=== PATIENT | female | born 1975 | race Caucasian/White ===

== ENCOUNTER 2016-04-07 23:05 | Emergency (ER) | payer OTHER ==
[~2016-04-07 23:05] MED LIST: /QUET10TA OR; AMOX500C OR; ATARAX OR; CELE100C; CELE100C OR; CELEBREX; DULO20CA; DULO20CA OR; IBUP400T; IBUP600T OR; KLON0.5T; LYRI75CA; LYRI75CA OR; METO10TA2 OR; REME30TA; SOMA; SOMA350T; SOMA350T OR; TRAZ100T OR; VICO5TAB OR; lyrica
[2016-04-07] MEDS ORDERED: HALOPERIDOL 5 MG/ML VIAL (J1630) As Ordered ONE (23:31)
[2016-04-07] MEDS ORDERED: LORazepam 2 MG/ML VIAL (J2060) As Ordered ONE (23:31)
[2016-04-07] MEDS ORDERED: diphenhydrAMINE INJ 50MG/ML VIAL (J1200) As Ordered ONE (23:31)
[2016-04-08 00:50] LABS: INR 0.9
[2016-04-08 00:58] LABS: CONTROL LINE HCG INT CTR LINE PRESENT
[2016-04-08 01:05] LABS: AMPHETAMINES LEVEL URINE NEGATIVE (NEGATIVE); BENZODIAZEPINES URINE NEGATIVE (NEGATIVE); COCAINE METABOLITE URINE NEGATIVE (NEGATIVE); CONTROL LINE INT CTR LINE PRESENT; METHADONE URINE NEGATIVE (NEGATIVE); OPIATES URINE NEGATIVE (NEGATIVE); TRICYCLIC ANTIDEPRESS URINE NEGATIVE (NEGATIVE)
[2016-04-08 01:10] LABS: ALKALINE PHOSPHATASE 76 U/L (45-117); ALT/SGPT 22 U/L (12-78); ANION GAP 7 MEQ/L (8-16); AST/SGOT 14 U/L (15-37); BILIRUBIN,TOTAL 0.2 MG/DL (0.2-1.0); BLOOD UREA NITROGEN 9 MG/DL (7-18); CALCIUM LEVEL 8.9 MG/DL (8.5-10.1); CARBON DIOXIDE LEVEL 28 MEQ/L (21-32); CHLORIDE LEVEL 109 MEQ/L (98-107); CREATININE FOR GFR 0.76 MG/DL (0.55-1.02); GLOMERULAR FILTRATION RATE > 60.0 (>58); GLUCOSE, FASTING 92 MG/DL (70-105); POTASSIUM SERUM 3.8 MEQ/L (3.5-5.1); SODIUM LEVEL 144 MEQ/L (136-145)
[2016-04-08 01:11] LABS: ALBUMIN 4.3 GM/DL (3.2-5.2); ALBUMIN/GLOBULIN RATIO 1.19 (1.00-1.93); BILIRUBIN,DIRECT < 0.1 MG/DL (0.0-0.2); TOTAL PROTEIN 7.9 GM/DL (6.4-8.2)
[2016-04-08 01:30] LABS: BASO # 0.1 K/mm3 (0.0-0.2); BASO % 1.1 % (0.0-1.0); EOS # 0.3 K/mm3 (0.0-0.50); EOS % 3.2 % (0.0-3.0); LARGE UNSTAINED CELL # 0.1 K/mm3 (0.0-0.4); LYMPH # 2.6 K/mm3 (1.5-4.5); MEAN CORPUSCULAR HEMOGLOBIN 29.7 pg (27.0-33.0); MEAN CORPUSCULAR HGB CONC 32.2 g/dl (32.0-36.5); MONO # 0.4 K/mm3 (0.0-0.8); MONO % 4.3 % (0.0-5.0); NEUTROPHILS # 5.9 K/mm3 (1.8-7.7); NEUTROPHILS % 63.3 % (36.0-66.0); PLATELET COUNT, AUTOMATED 442 k/mm3 (150-450); RED CELL DISTRIBUTION WIDTH 12.7 % (11.5-14.5); WHITE BLOOD COUNT 9.2 K/mm3 (4.0-10.0)
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
--- NOTE | 2016-04-08 02:40 | REPUSA ---
CLINICAL HISTORY: Neck pain. TECHNIQUE: Multiple axial images were obtained through the cervical spine. Images were also reconstru cted in coronal and sagittal planes. The study was performed without IV contrast. COMMENTS: There is no fracture or spondylolisthesis visualized. The paraspinal soft tissues are unremarkable. T here are no lytic or blastic lesions. Straightening of cervical lordosis is seen, suggesting muscular spasm. There is evidence of moderate multilevel disk disease, demonstrated by osteophytosis and endplate sclerosis. Moderate multilevel spinal canal and neural foramina narrowing. IMPRESSION: 1. No fracture or spondylolisthesis. 2. Straightening of cervical lordosis is seen, suggesting muscular spasm. 3. Multilevel spondylosis. Thank you for your kind referral of this patient.
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
--- NOTE | 2016-04-08 03:20 | REPUSA ---
CLINICAL HISTORY: Abdominal pain. TECHNIQUE: Multiple axial, sagittal and coronal CT images were obtained through the abdomen and pelvi s without administration of oral or IV contrast material. COMMENTS: The liver is of uniform attenuation without mass or defect. There is no intra or extrahepatic biliary ductal dilatation. The spleen is normal. The gallbladder is within normal limits. The pancreas is of normal contour and attenuation characteristics. There is no evidence of adrenal mass. Moderate fracture or hydronephrosis. There is no evidence for appendicitis. There is no bowel wall thickening. No evidence for small or la rge bowel obstruction. There is no evidence of abdominal ascites or lymphadenopathy. There is no evidence of intrinsic or extrinsic bladder mass. There is no pelvic ascites or lymphadeno dana. Distended urinary bladder. Small amount of free fluid in the pelvis. There is perisigmoid fat strandi ng. Images of the lung bases show no evidence of pleural or parenchymal mass. There are no pleural effusi ons. The bony structures are free of lytic or blastic lesions. Multilevel degenerative changes are seen in volving the thoracolumbar spine. Scattered calcifications are seen involving the aorta and major branches compatible with atherosclero sis. IMPRESSION: Small amount of free fluid in the pelvis the perisigmoid fat stranding. Sigmoid diverticulosis. Distended urinary bladder. Moderate left hydroureteronephrosis. Thank you for your kind referral of this patient.
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
--- NOTE | 2016-04-08 16:05 | REP ---
CT ABDOMEN AND PELVIS WITHOUT CONTRAST: 04/08/2016 at 03:05 PM. Comparison: CT 04/08/2016 at 1:24 AM., CT 02/18/2016, 09/26/2015 CT without with contrast. Clinical history: Left hydronephrosis, chronic. CT abdomen: Technique: Our standard noncontrast protocol with coronal and sagittal reconstructions performed. The lung bases show minor dependent atelectatic change without infiltrate, effusion or other acute finding. Heart is not enlarged. There is no pericardial thickening or effusion. I see no hiatal hernia. There is no hepatosplenomegaly, focal hepatic or splenic mass lesion nor intrahepatic biliary dilatation. No adjacent ascites. Gallbladder contracted without calcified stone or mass. Pancreas grossly intact. Adrenal glands normal. No nodular mass. Small bowel loops grossly intact. Colon shows diverticulosis of the left colon without colitis or diverticulitis in the abdomen proper. Small bowel loops grossly intact. The aorta is without calcification or aneurysm. No periaortic or retroperitoneal pathologic sized lymphadenopathy. Lung window review of all CT slices shows no perforation or free air. The bone windows show lumbar and lower thoracic spine, posterior elements and ribs unchanged and without acute finding. CT pelvis: Bony hips, pelvis, sacrum, SI joints, lumbosacral junction all grossly intact and without acute finding. The bladder is without stone, mass, wall thickening or other acute finding. The right kidney shows no hydronephrosis, stone or mass. The left kidney shows some mild atrophy of the cortex and moderate hydronephrosis with extrarenal pelvis and hydroureter down to the pelvis. There are inflammatory changes in the left lower quadrant posterior to the sigmoid where there is fairly extensive changes, sigmoid muscular hypertrophy and diverticulitis. There is no definite perforation or abscess there, but the ureter is dilated above this point and there has been chronic inflammatory change in this region, which is likely the cause of the ureteral dilatation. I do not see a renal or ureteral stone on that left side. The distal ureters show no dilatation or stone. There is no bladder stone. Uterus anteverted, slightly tilted to the right, not enlarged. There is no ventral or inguinal hernia nor pathologic inguinal adenopathy. No inflammatory changes about the cecum. Impression: Moderately severe to severe left hydronephrosis with extrarenal pelvis and hydroureter down to the left pelvis where there are fairly extensive inflammatory changes from sigmoid diverticulitis, this would appear to be the cause of the hydronephrosis. There is no renal or ureteral stone on the left and no stone on the right. The extensive diverticulosis and muscular hypertrophy similar to that seen on previous studies. No perforation, abscess or free air. There are no changes in the appearance of the exam from the study 14 hours ago. Signed by Derrek Mo MD 04/08/2016 05:53 P
[2016-04-08 17:00] LABS: BASO % 0.4 % (0.0-1.0); EOS # 0.3 K/mm3 (0.0-0.50); EOS % 4.2 % (0.0-3.0); LARGE UNSTAINED CELL # 0.1 K/mm3 (0.0-0.4); LARGE UNSTAINED CELL % 1.3 % (0.0-4.0); LYMPH # 1.8 K/mm3 (1.5-4.5); LYMPH % 22.4 % (24.0-44.0); MEAN CORPUSCULAR HEMOGLOBIN 31.1 pg (27.0-33.0); MEAN CORPUSCULAR HGB CONC 34.9 g/dl (32.0-36.5); MEAN CORPUSCULAR VOLUME 88.9 fl (80.0-96.0); MONO # 0.4 K/mm3 (0.0-0.8); MONO % 4.5 % (0.0-5.0); NEUTROPHILS # 5.5 K/mm3 (1.8-7.7); NEUTROPHILS % 67.2 % (36.0-66.0); PLATELET COUNT, AUTOMATED 427 k/mm3 (150-450); RED CELL DISTRIBUTION WIDTH 11.9 % (11.5-14.5); WHITE BLOOD COUNT 8.2 K/mm3 (4.0-10.0)
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
== END 2016-04-08 18:14 | disposition home or self-care (01) ==
LOC: M ED 23:05
DX: S20.211A Contusion of right front wall of thorax, initial encounter (principal); S62.663A Nondisplaced fracture of distal phalanx of left middle finger, initial encounter for closed fracture; F10.229 Alcohol dependence with intoxication, unspecified; Y04.8XXA Assault by other bodily force, initial encounter; Y92.099 Unspecified place in other non-institutional residence as the place of occurrence of the external cause; Y93.89 Activity, other specified; Y99.8 Other external cause status; F90.9 Attention-deficit hyperactivity disorder, unspecified type; M54.9 Dorsalgia, unspecified; F17.200 Nicotine dependence, unspecified, uncomplicated; Z79.899 Other long term (current) drug therapy
CPT/HCPCS: 36415; 70450; 71250; 72125; 73140; 74176; 80048; 80076; 80306; 84703; 85025; 85610; 85730; 86850; 86900; 86901; 96372; 99285; G0480; J1200; J1630; J2060

== ENCOUNTER → 2016-07-01 | Outpatient (CLI) | payer OTHER ==
[~2016-07-01] VITALS: Ht 165.1 cm; Wt 65.8 kg
[~2016-07-01] MED LIST changes: +ADDE10CA PO; +LIDOCAINE 2% INJ 100 MG/5 ML SDV (FOR ANES.) As Ordered ONE; +NS 1,000 ML IV SCH; +PROPOFOL 200 MG/20 ML VIAL As Ordered ONE; +XANA0.5T PO
--- NOTE | 2016-07-01 08:34 | ROOR ---
Patient Name: Pam Chamorro Procedure Date: 07/01/2016 7:57 AM Date of : 1975 Age: 41 Room: [facility] Gender: Female Note Status: Finalized Procedure: Colonoscopy Indications: Abdominal pain in the left lower quadrant, Abnormal CT of the GI tract, Suspected diverticulitis Providers: Iván Davison MD Referring MD: RANULFO GILMORE MD Requesting Provider: Medicines: Monitored Anesthesia Care Complications: No immediate complications. Procedure: Pre-Anesthesia Assessment: - Prior to the procedure, a History and Physical was performed, and patient medications and allergies were reviewed. The patient is competent. The risks and benefits of the procedure and the sedation options and risks were discussed with the patient. All questions were answered and informed consent was obtained. Patient identification and proposed procedure were verified by the physician, the nurse and the manager market in the endoscopy suite. Mental Status Examination: alert and oriented. Airway Examination: normal oropharyngeal airway and neck mobility. Respiratory Examination: clear to auscultation. CV Examination: normal. Prophylactic Antibiotics: The patient does not require prophylactic antibiotics. Prior Anticoagulants: The patient has taken no previous anticoagulant or antiplatelet agents. ASA Grade Assessment: II - A patient with mild systemic disease. After reviewing the risks and benefits, the patient was deemed in satisfactory condition to undergo the procedure. The anesthesia plan was to use monitored anesthesia care (MAC). Immediately prior to administration of medications, the patient was re-assessed for adequacy to receive sedatives. The heart rate, respiratory rate, oxygen saturations, blood pressure, adequacy of pulmonary ventilation, and response to care were monitored throughout the procedure. The physical status of the patient was re-assessed after the procedure. The Colonoscope was introduced through the anus and advanced to the cecum, identified by appendiceal orifice and ileocecal valve. The colonoscopy was somewhat difficult due to multiple diverticula in the colon and restricted mobility of the colon. The patient tolerated the procedure well. The quality of the bowel preparation was good. Findings: The perianal and digital rectal examinations were normal. A small polyp was found in the rectum. The polyp was pedunculated. The polyp was removed with a hot snare. Resection and retrieval were complete. Estimated blood loss: none. Multiple medium-mouthed diverticula were found in the sigmoid colon. There was narrowing of the colon in association with the diverticular opening. Emily-diverticular erythema was seen. At the area of sigmoid colon from 20 to 40 cms, noted muscular hypertrophy with redundant colon, difficulty in intubating but was able to go through, some scattered peridiverticular erythema, no purulent drainage, multiple diverticula No additional abnormalities were found on retroflexion. Impression: - One small polyp in the rectum, removed with a hot snare. Resected and retrieved. - Moderate diverticulosis in the sigmoid colon. There was narrowing of the colon in association with the diverticular opening. Emily-diverticular erythema was seen. Recommendation: - Discharge patient to home (ambulatory). - High fiber diet indefinitely. - Return to my office in 2 weeks. Iván Davison MD Iván Davison MD 07/01/2016 8:34:03 AM This report has been signed electronically. Number of Addenda: 0 Note Initiated On: 07/01/2016 7:57 AM Estimated Blood Loss: Estimated blood loss: none.
[2016-07-01 09:25] VITALS: BP 128/71
== END | disposition home or self-care (01) ==
LOC: M OPP 07:17
PROVIDERS: ATTEND Surgery
DX: R93.3 Abnormal findings on diagnostic imaging of other parts of digestive tract (principal); K57.92 Diverticulitis of intestine, part unspecified, without perforation or abscess without bleeding; R10.32 Left lower quadrant pain; D12.8 Benign neoplasm of rectum; Q43.8 Other specified congenital malformations of intestine; M19.90 Unspecified osteoarthritis, unspecified site; M54.9 Dorsalgia, unspecified; M48.00 Spinal stenosis, site unspecified; F90.9 Attention-deficit hyperactivity disorder, unspecified type; R06.02 Shortness of breath; N13.30 Unspecified hydronephrosis; N18.9 Chronic kidney disease, unspecified; F17.210 Nicotine dependence, cigarettes, uncomplicated; Z79.899 Other long term (current) drug therapy

== ENCOUNTER 2017-09-11 02:49 | Emergency (ER) | payer OTHER | END 2017-09-11 03:48 | disposition left against medical advice (07) | LOC: M ED 02:49 | DX: S00.91XA Abrasion of unspecified part of head, initial encounter (principal); Y04.8XXA Assault by other bodily force, initial encounter; Y92.89 Other specified places as the place of occurrence of the external cause; Z53.21 Procedure and treatment not carried out due to patient leaving prior to being seen by health care provider | CPT/HCPCS: 99283 ==

== ENCOUNTER 2018-11-08 16:20 | Emergency (ER) | payer OTHER ==
[~2018-11-08] VITALS: Ht 165.1 cm; Wt 64.8 kg
[~2018-11-08 16:20] MED LIST changes: -/QUET10TA OR; -ADDE10CA PO; +ADDE10CA3 PO; +AMPHET/DEXTR; +CYMB1CAP4; +CYMB1CAP4 OR; -DULO20CA; -DULO20CA OR; -LIDOCAINE 2% INJ 100 MG/5 ML SDV (FOR ANES.) As Ordered ONE; -NS 1,000 ML IV SCH; -PROPOFOL 200 MG/20 ML VIAL As Ordered ONE; +SERO1TAB OR
[2018-11-08 16:21] VITALS: BP 136/65
[2018-11-08] MEDS ORDERED: CARI1TAB7 (16:27)
[2018-11-08] MEDS ORDERED: ADDE20CA3 (16:27)
[2018-11-08] MEDS ORDERED: KETOROLAC 60 MG/2 ML VIAL (J1885) IM ONE (17:15)
[2018-11-08] MEDS ORDERED: CIPRODEX AS (17:21)
[2018-11-08] MEDS ORDERED: KETO10TAB PO (17:21)
[2018-11-08] MEDS ORDERED: CIPR-249 PO (17:21)
== END 2018-11-08 17:56 | disposition home or self-care (01) ==
LOC: M ED 16:20
DX: H60.312 Diffuse otitis externa, left ear (principal); H60.12 Cellulitis of left external ear; Z79.899 Other long term (current) drug therapy
CPT/HCPCS: 96372; 99283; J1885

== ENCOUNTER 2018-12-31 01:34 | Emergency (ER) | payer OTHER ==
[~2018-12-31] VITALS: Ht 157.5 cm; Wt 65.9 kg
[~2018-12-31 01:34] MED LIST changes: +ADDE20CA3; +CARI1TAB7; +CIPR-249 PO; +CIPRODEX AS; +KETO10TAB PO
[2018-12-31 01:40] VITALS: BP 140/86
== END 2018-12-31 01:55 | disposition left against medical advice (07) ==
LOC: M ED 01:34
DX: F10.129 Alcohol abuse with intoxication, unspecified (principal); Z53.21 Procedure and treatment not carried out due to patient leaving prior to being seen by health care provider; Z79.899 Other long term (current) drug therapy

== ENCOUNTER 2018-12-31 01:59 | Emergency (ER) | payer OTHER ==
[~2018-12-31] VITALS: Ht 162.6 cm; Wt 68.2 kg
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
[2018-12-31 03:26] LABS: BASO # 0.1 10^3/uL (0.0-0.2); BASO % 0.8 % (0.0-1.0); EOS # 0.2 10^3/uL (0.0-0.5); EOS % 2.1 % (0.0-3.0); HEMATOCRIT 41.7 % (36.0-47.0); HEMOGLOBIN 14.3 g/dl (12.0-15.5); LYMPH # 2.2 10^3/uL (1.5-5.0); LYMPH % 19.6 % (24.0-44.0); MEAN CORPUSCULAR HEMOGLOBIN 30.8 pg (27.0-33.0); MEAN CORPUSCULAR HGB CONC 34.3 g/dl (32.0-36.5); MEAN CORPUSCULAR VOLUME 89.7 fl (80.0-96.0); MONO # 0.7 10^3/uL (0.0-0.8); MONO % 6.5 % (0.0-5.0); NEUTROPHILS # 7.7 10^3/uL (1.5-8.5); NEUTROPHILS % 70.5 % (36.0-66.0); PLATELET COUNT, AUTOMATED 363 10^3/uL (150-450); RED BLOOD COUNT 4.65 10^6/uL (4.00-5.40)
[2018-12-31] MEDS ORDERED: AMPICILLIN SOD/SULBACTAM SOD 3 GM in D5W MINI-BAG PLUS 100 ML IV ONE (03:30)
[2018-12-31 03:51] LABS: BLOOD UREA NITROGEN 9 MG/DL (7-18); CALCIUM LEVEL 8.9 MG/DL (8.5-10.1); CARBON DIOXIDE LEVEL 26 MEQ/L (21-32); CHLORIDE LEVEL 101 MEQ/L (98-107); CREATININE FOR GFR 0.77 MG/DL (0.55-1.30); ETHYL ALCOHOL (ETHANOL) 0.133 % (0.000-0.010); GLOMERULAR FILTRATION RATE > 60.0 (>58); GLUCOSE, FASTING 68 MG/DL (70-100); POTASSIUM SERUM 3.5 MEQ/L (3.5-5.1); SODIUM LEVEL 137 MEQ/L (136-145)
[2018-12-31] MEDS ORDERED: NICOTINE 21MG/24HR 1 EA TRANSDERMAL TD ONE (04:00)
[2018-12-31] MEDS ORDERED: MORPHINE 4 MG/ML 1ML VIAL/SYRINGE (J2270) IV ONE (04:00)
[2018-12-31 04:23] VITALS: BP 141/100
== END 2018-12-31 04:29 | disposition short-term general hospital (02) ==
LOC: M ED 01:59
DX: S02.32XA Fracture of orbital floor, left side, initial encounter for closed fracture (principal); S02.2XXA Fracture of nasal bones, initial encounter for closed fracture; F10.129 Alcohol abuse with intoxication, unspecified; Y04.8XXA Assault by other bodily force, initial encounter; Y92.9 Unspecified place or not applicable; Y93.9 Activity, unspecified; Y99.9 Unspecified external cause status; Z79.899 Other long term (current) drug therapy
CPT/HCPCS: 70450; 70486; 80048; 85025; 96365; 96375; 99284; G0480; J2270

== ENCOUNTER 2020-08-13 02:16 | Emergency (ER) | payer OTHER ==
[~2020-08-13 02:16] MED LIST changes: +CIPR7.5D5 AS; -CIPRODEX AS
[2020-08-13 02:54] LABS: BASO # 0.1 10^3/uL (0.0-0.2); BASO % 0.5 % (0.0-1.0); EOS # 0.1 10^3/uL (0.0-0.5); EOS % 0.8 % (0.0-3.0); HEMATOCRIT 41.7 % (36.0-47.0); HEMOGLOBIN 13.9 g/dl (12.0-15.5); LYMPH # 1.4 10^3/uL (1.5-5.0); LYMPH % 9.4 % (24.0-44.0); MEAN CORPUSCULAR HEMOGLOBIN 30.5 pg (27.0-33.0); MEAN CORPUSCULAR HGB CONC 33.3 g/dl (32.0-36.5); MEAN CORPUSCULAR VOLUME 91.6 fl (80.0-96.0); MONO # 1.2 10^3/uL (0.0-0.8); MONO % 7.8 % (2.0-8.0); NEUTROPHILS # 12.2 10^3/uL (1.5-8.5); PLATELET COUNT, AUTOMATED 443 10^3/uL (150-450); RED BLOOD COUNT 4.55 10^6/uL (4.00-5.40); WHITE BLOOD COUNT 15.1 10^3/uL (4.0-10.0)
[2020-08-13 03:05] LABS: ACETAMINOPHEN LEVEL < 2.0 UG/ML (10.0-30.0); BLOOD UREA NITROGEN 7 MG/DL (7-18); CALCIUM LEVEL 8.6 MG/DL (8.5-10.1); CARBON DIOXIDE LEVEL 25 MEQ/L (21-32); CHLORIDE LEVEL 105 MEQ/L (98-107); CREATININE FOR GFR 0.69 MG/DL (0.55-1.30); ETHYL ALCOHOL (ETHANOL) 0.084 % (0.000-0.010); GLOMERULAR FILTRATION RATE > 60.0 (>58); GLUCOSE, FASTING 96 MG/DL (70-100); POTASSIUM SERUM 3.8 MEQ/L (3.5-5.1); SALICYLATE LEVEL 3.5 MG/DL (5.0-30.0); SODIUM LEVEL 140 MEQ/L (136-145)
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
--- NOTE | 2020-08-13 03:35 | REPVR ---
PROCEDURE INFORMATION: Exam: CT Cervical Spine Without Contrast Exam date and time: 08/13/2020 2:20 AM Age: 45 years old Clinical indication: Neck pain; Additional info: Fall injury TECHNIQUE: Imaging protocol: Computed tomography images of the cervical spine without contrast. Radiation optimization: All CT scans at this facility use at least one of these dose optimization techniques: automated exposure control; mA and/or kV adjustment per patient size (includes targeted exams where dose is matched to clinical indication); or iterative reconstruction. COMPARISON: CT Spine,cervical w/o contrast 04/08/2016 1:19 AM FINDINGS: There is straightening and mild reversal of cervical lordosis. Cervical vertebral body heights, posterior cervical alignment, and prevertebral soft tissues are within normal limits. Bony fusion is noted across the T1/T2 level. The atlantodental interval is maintained. The facet joints are not subluxed or dislocated. Inter spinous spacing is within normal limits. No acute fracture of the cervical spine is seen. Degenerative changes of the cervical spine are noted with mild to moderate disc space loss, anterior osteophytes, posterior bony ridging and facet arthropathy. Bony proliferative changes may result in varying degrees of central canal and foraminal compromise at multiple levels, appearing more pronounced towards the lower cervical levels. Appearance is similar to the prior exam. If there are neurologic symptoms, consider further evaluation by MRI. Mild parenchymal scarring is seen at the visualized lung apices. IMPRESSION: No acute fracture of the cervical spine. Other findings discussed above. Electronically signed by: Joe Barrett On 08/13/2020 03:35:28 AM
[2020-08-13] MEDS ORDERED: KETOROLAC 30 MG/ML 1ML VIAL IV ONE (03:50)
[2020-08-13] MEDS ORDERED: LIDOCAINE 5% (LIDODERM) PATCH TD ONE (03:50)
[2020-08-13] MEDS ORDERED: LIDO5DIS41 TOP (03:51)
[2020-08-13] MEDS ORDERED: IBUP-1022 PO (03:51)
--- NOTE | 2020-08-13 04:16 | REPVR ---
PROCEDURE INFORMATION: Exam: XR Right Ankle Exam date and time: 08/13/2020 3:26 AM Age: 45 years old Clinical indication: Pain; Ankle; Bilateral; Additional info: Fall injury TECHNIQUE: Imaging protocol: XR Right ankle. Views: 3 or more views. COMPARISON: CR Ankle, complete 09/10/2014 1:17 PM FINDINGS: Bones/joints: Area of sclerosis distal fibula diaphysis probably reflecting residua benign metaphyseal defect. Soft tissues: Soft tissue edema laterally. No acute fracture. IMPRESSION: No acute osseous abnormality. PROCEDURE INFORMATION: Exam: XR Left Ankle Exam date and time: 08/13/2020 3:26 AM Age: 45 years old Clinical indication: Pain; Ankle; Bilateral; Additional info: Fall injury TECHNIQUE: Imaging protocol: XR Left ankle. Views: 3 or more views. COMPARISON: CR Ankle, complete 09/10/2014 1:17 PM FINDINGS: Bones/joints: Small calcaneal spur. No acute fracture. Soft tissues: Soft tissue edema laterally. IMPRESSION: No acute osseous abnormality. Electronically signed by: Juliet Hogan On 08/13/2020 04:15:19 AM
[2020-08-13 05:26] VITALS: BP 144/72
[2020-08-13] MEDS ORDERED: **NOTE PATIENT COMMENT** MISC XX SCH (21:00)
== END 2020-08-13 05:42 | disposition home or self-care (01) ==
LOC: M ED 02:16
DX: S93.409A Sprain of unspecified ligament of unspecified ankle, initial encounter (principal); W01.0XXA Fall on same level from slipping, tripping and stumbling without subsequent striking against object, initial encounter; Y92.9 Unspecified place or not applicable; Y93.9 Activity, unspecified; Y99.9 Unspecified external cause status; F32.9 Major depressive disorder, single episode, unspecified; M54.9 Dorsalgia, unspecified; Z79.899 Other long term (current) drug therapy
CPT/HCPCS: 70450; 72125; 73610; 80048; 80143; 82077; 85025; 96374; 99284; J1885

== ENCOUNTER → 2022-01-15 | Outpatient (CLI) | payer OTHER ==
[~2022-01-15] MED LIST changes: +E-Z-GAS II EFFERVESCENT PACKET (SODIUM BICARB./CITRIC ACID/SIMETHICONE) As Ordered ONE; +E-Z-HD 98% w/w 340GM SUSP BTL As Ordered ONE; +E-Z-PAQUE 96% w/w SUSP 176GM BTL As Ordered ONE; +IBUP-1022 PO; +LIDO5DIS41 TOP
== END ==
LOC: M RAD 09:59
PROVIDERS: ATTEND Family Medicine
DX: K21.9 Gastro-esophageal reflux disease without esophagitis (principal)

== ENCOUNTER 2022-06-30 22:38 | Emergency (ER) | payer MEDICAID, OTHER, SELFPAY ==
[~2022-06-30 22:38] MED LIST changes: -ADDE20CA3; +ADDE20CA3 PO; -CARI1TAB7; +CARI1TAB7 PO; -E-Z-GAS II EFFERVESCENT PACKET (SODIUM BICARB./CITRIC ACID/SIMETHICONE) As Ordered ONE; -E-Z-HD 98% w/w 340GM SUSP BTL As Ordered ONE; -E-Z-PAQUE 96% w/w SUSP 176GM BTL As Ordered ONE
[2022-06-30] MEDS ORDERED: OLANZapine INTRAMUSCULAR 10MG VIAL IM ONE (23:00)
[2022-06-30 23:39] LABS: HEMATOCRIT 39.3 % (36.0-47.0); HEMOGLOBIN 13.1 g/dl (12.0-15.5); MEAN CORPUSCULAR HEMOGLOBIN 28.6 pg (27.0-33.0); MEAN CORPUSCULAR HGB CONC 33.3 g/dl (32.0-36.5); MEAN CORPUSCULAR VOLUME 85.8 fl (80.0-96.0); PLATELET COUNT, AUTOMATED 353 10^3/uL (150-450); RED BLOOD COUNT 4.58 10^6/uL (4.00-5.40); WHITE BLOOD COUNT 8.6 10^3/uL (4.0-10.0)
[2022-06-30] MEDS ORDERED: HYDR-3363 PO (23:43)
[2022-06-30] MEDS ORDERED: ALBU8.5H INH (23:43)
[2022-06-30] MEDS ORDERED: OMEP-173 PO (23:44)
[2022-06-30] MEDS ORDERED: FOLI1TAB11 PO (23:44)
[2022-06-30] MEDS ORDERED: MELO7.5T35 PO (23:45)
[2022-06-30] MEDS ORDERED: HOME MED LIST COMPLETE! XX SCH (23:45)
[2022-06-30 23:54] LABS: ETHYL ALCOHOL (ETHANOL) 0.179 % (0.000-0.010)
[2022-06-30 23:56] LABS: ALBUMIN 4.2 G/DL (3.2-5.2); ALKALINE PHOSPHATASE 109 U/L (46-116); ALT/SGPT 15 U/L (7.0-40); AST/SGOT 18 U/L (<34); BILIRUBIN,DIRECT < 0.1 MG/DL (<0.4); BILIRUBIN,TOTAL 0.2 MG/DL (0.3-1.2); BLOOD UREA NITROGEN 8 MG/DL (9-23); CALCIUM LEVEL 8.6 MG/DL (8.5-10.1); CARBON DIOXIDE LEVEL 25 MMOL/L (20-31); CHLORIDE LEVEL 106 MMOL/L (98-107); GLOMERULAR FILTRATION RATE > 60.0 (>58); GLUCOSE, FASTING 89 MG/DL (60-100); SALICYLATE LEVEL < 3.0 MG/DL (<30); SODIUM LEVEL 138 MMOL/L (136-145); TOTAL PROTEIN 7.6 G/DL (5.7-8.2)
[2022-06-30 23:57] LABS: ACETAMINOPHEN LEVEL < 2.0 UG/ML (10.0-20.0)
[2022-06-30 23:58] LABS: THYROID STIMULATING HORMONE 0.965 uIU/ML (0.55-4.78)
[2022-07-01 00:04] LABS: HCG, SERUM QUALITATIVE NEGATIVE (NEGATIVE)
[2022-07-01 00:05] LABS: AMPHETAMINES LEVEL URINE NEGATIVE (NEGATIVE); BARBITURATES URINE NEGATIVE (NEGATIVE); BENZODIAZEPINES URINE NEGATIVE (NEGATIVE); COCAINE METABOLITE URINE NEGATIVE (NEGATIVE); METHADONE URINE NEGATIVE (NEGATIVE); OPIATES URINE NEGATIVE (NEGATIVE); PHENCYCLIDINE URINE NEGATIVE (NEGATIVE)
[2022-07-01 00:06] LABS: CANNABINOIDS URINE POSITIVE (NEGATIVE)
[2022-07-01] MEDS ORDERED: ACETAMINOPHEN TAB 650MG DOSE (2X325MG) PO ONE (03:55)
[2022-07-01] MEDS ORDERED: OMEPRAZOLE 20MG CAP PO SCH (09:00)
[2022-07-01] MEDS ORDERED: MELOXICAM (MOBIC) 7.5 MG TAB PO SCH (09:00)
[2022-07-01] MEDS ORDERED: FOLIC ACID 1MG TAB PO SCH (09:00)
[2022-07-01 15:23] VITALS: BP 144/86
== END 2022-07-01 15:33 | disposition home or self-care (01) ==
LOC: M ED 22:38
DX: F10.129 Alcohol abuse with intoxication, unspecified (principal)
CPT/HCPCS: 36415; 80048; 80076; 80143; 80307; 82077; 84443; 84703; 85027; 87635; 99284; S0166

== ENCOUNTER 2023-01-14 11:30 | Outpatient (RCR) | payer OTHER | END 2023-01-19 | LOC: M ST 11:30 | DX: I63.9 Cerebral infarction, unspecified (principal); R47.01 Aphasia ==

== ENCOUNTER → 2023-01-14 | Outpatient (CLI) | payer OTHER ==
[~2023-01-14] MED LIST changes: +ALBU8.5H INH; +FOLI1TAB11 PO; +HYDR-3363 PO; +MELO7.5T35 PO; +OMEP-173 PO
[2023-01-14 13:42] LABS: BASO % 0.5 % (0.0-1.0); EOS # 0.2 10^3/uL (0.0-0.5); EOS % 2.7 % (0.0-3.0); HEMATOCRIT 40.4 % (36.0-47.0); HEMOGLOBIN 12.8 g/dl (12.0-15.5); LYMPH # 3.4 10^3/uL (1.5-5.0); MEAN CORPUSCULAR HEMOGLOBIN 27.2 pg (27.0-33.0); MEAN CORPUSCULAR HGB CONC 31.7 g/dl (32.0-36.5); MEAN CORPUSCULAR VOLUME 85.8 fl (80.0-96.0); MONO # 0.7 10^3/uL (0.0-0.8); MONO % 7.7 % (2.0-8.0); NEUTROPHILS # 4.1 10^3/uL (1.5-8.5); NEUTROPHILS % 48.9 % (36.0-66.0); PLATELET COUNT, AUTOMATED 516 10^3/uL (150-450); RED BLOOD COUNT 4.71 10^6/uL (4.00-5.40); WHITE BLOOD COUNT 8.5 10^3/uL (4.0-10.0)
== END ==
LOC: M LAB 12:49
PROVIDERS: ATTEND Nurse Practitioner
DX: D73.3 Abscess of spleen (principal)

== ENCOUNTER → 2023-01-20 | Outpatient (CLI) | payer OTHER | LOC: M RAD 14:30 | PROVIDERS: ATTEND Nurse Practitioner Family | DX: N13.39 Other hydronephrosis (principal) ==

== ENCOUNTER 2023-02-01 11:15 | Outpatient (RCR) | payer OTHER | END 2023-02-18 | LOC: M ST 11:15 | DX: I63.9 Cerebral infarction, unspecified (principal); R47.01 Aphasia ==

== ENCOUNTER 2023-03-18 12:22 | Outpatient (RCR) | payer OTHER | END 2023-03-21 | LOC: M ST 12:22 | PROVIDERS: ATTEND Psychiatry & Neurology Neurology | DX: F80.89 Other developmental disorders of speech and language (principal) ==

== ENCOUNTER → 2023-04-15 | Outpatient (CLI) | payer OTHER ==
[2023-04-15 13:22] LABS: HEMATOCRIT 44.1 % (36.0-47.0); HEMOGLOBIN 14.5 g/dl (12.0-15.5); MEAN CORPUSCULAR HEMOGLOBIN 27.9 pg (27.0-33.0); MEAN CORPUSCULAR HGB CONC 32.9 g/dl (32.0-36.5); PLATELET COUNT, AUTOMATED 375 10^3/uL (150-450); RED BLOOD COUNT 5.19 10^6/uL (4.00-5.40); WHITE BLOOD COUNT 6.8 10^3/uL (4.0-10.0)
[2023-04-15 13:28] LABS: HEMOGLOBIN A1c 5.6 % (4.0-6.0)
[2023-04-15 13:34] LABS: ALBUMIN 4.1 G/DL (3.2-5.2); ALKALINE PHOSPHATASE 105 U/L (46-116); ALT/SGPT 10 U/L (7.0-40); AST/SGOT 10 U/L (<34); BILIRUBIN,TOTAL 0.5 MG/DL (0.3-1.2); BLOOD UREA NITROGEN 13 MG/DL (9-23); CALCIUM LEVEL 9.7 MG/DL (8.5-10.1); CARBON DIOXIDE LEVEL 29 MMOL/L (20-31); CHLORIDE LEVEL 106 MMOL/L (98-107); CHOLESTEROL LEVEL 190 MG/DL (<200); CHOLESTEROL RISK RATIO 2.91 (<5); CREATININE FOR GFR 0.72 MG/DL (0.55-1.30); GLOMERULAR FILTRATION RATE > 60.0 (>58); GLUCOSE, FASTING 102 MG/DL (60-100); HDL CHOLESTEROL 65.2 MG/DL (>40); LDL CHOLESTEROL 102.8 MG/DL (<100); NON-HDL-C 124.8 MG/DL; POTASSIUM SERUM 4.7 MMOL/L (3.5-5.1); SODIUM LEVEL 141 MMOL/L (136-145); TOTAL PROTEIN 7.5 G/DL (5.7-8.2); TRIGLYCERIDES LEVEL 110 MG/DL (<150)
[2023-04-15 13:38] LABS: THYROID STIMULATING HORMONE 1.311 uIU/ML (0.55-4.78)
[2023-04-15 13:40] LABS: TOTAL 25(OH) VITAMIN D 21.9 NG/ML (20.0-100.0)
== END ==
LOC: M LAB 11:55
PROVIDERS: ATTEND Family Medicine
DX: D64.9 Anemia, unspecified (principal); R53.83 Other fatigue; E03.9 Hypothyroidism, unspecified

== ENCOUNTER 2023-04-19 12:30 | Outpatient (RCR) | payer OTHER | END 2023-04-21 | LOC: M ST 12:30 | PROVIDERS: ATTEND Psychiatry & Neurology Neurology | DX: F80.89 Other developmental disorders of speech and language (principal) ==

== ENCOUNTER → 2023-05-07 | Outpatient (CLI) | payer OTHER | LOC: M RAD 14:24 | PROVIDERS: ATTEND Urology | DX: N13.39 Other hydronephrosis (principal) ==

== ENCOUNTER 2023-05-19 12:11 | Outpatient (RCR) | payer OTHER | END 2023-05-20 | LOC: M ST 12:11 | PROVIDERS: ATTEND Psychiatry & Neurology Neurology | DX: R47.9 Unspecified speech disturbances (principal) ==

== ENCOUNTER → 2023-06-08 | Outpatient (CLI) | payer OTHER | LOC: M RAD 08:06 | PROVIDERS: ATTEND Family Medicine | DX: Z53.9 Procedure and treatment not carried out, unspecified reason (principal) ==

== ENCOUNTER 2023-06-10 11:16 | Outpatient (RCR) | payer OTHER | END 2023-06-20 | LOC: M ST 11:16 | PROVIDERS: ATTEND Family Medicine | DX: I63.9 Cerebral infarction, unspecified (principal); I69.320 Aphasia following cerebral infarction ==

== ENCOUNTER → 2023-06-18 | Outpatient (CLI) | payer OTHER | LOC: M LAB 12:40 | PROVIDERS: ATTEND Urology | DX: N13.39 Other hydronephrosis (principal); R33.9 Retention of urine, unspecified ==

== ENCOUNTER 2023-06-26 10:43 | Emergency (ER) | payer OTHER ==
[~2023-06-26] VITALS: Ht 162.6 cm; Wt 65.1 kg
[2023-06-26 10:45] VITALS: BP 131/88; TEMP 98.3; O2SAT 100
[2023-06-26 12:03] LABS: BASO # 0.1 10^3/uL (0.0-0.2); BASO % 0.7 % (0.0-1.0); EOS # 0.2 10^3/uL (0.0-0.5); EOS % 2.5 % (0.0-3.0); HEMATOCRIT 41.7 % (36.0-47.0); LYMPH % 27.7 % (24.0-44.0); MEAN CORPUSCULAR HEMOGLOBIN 29.8 pg (27.0-33.0); MEAN CORPUSCULAR HGB CONC 33.6 g/dl (32.0-36.5); MEAN CORPUSCULAR VOLUME 88.7 fl (80.0-96.0); MONO # 0.5 10^3/uL (0.0-0.8); MONO % 6.9 % (2.0-8.0); NEUTROPHILS # 4.5 10^3/uL (1.5-8.5); NEUTROPHILS % 61.9 % (36.0-66.0); PLATELET COUNT, AUTOMATED 326 10^3/uL (150-450); WHITE BLOOD COUNT 7.2 10^3/uL (4.0-10.0)
[2023-06-26] MEDS ORDERED: ISOVUE-370 76% 100ML VIAL As Ordered ONE (12:31)
[2023-06-26 12:34] LABS: LIPASE 34 U/L (12-53)
[2023-06-26 12:36] LABS: ALBUMIN 4.1 G/DL (3.2-5.2); ALKALINE PHOSPHATASE 104 U/L (46-116); ALT/SGPT < 9 U/L (7.0-40); AST/SGOT 13 U/L (<34); BILIRUBIN,DIRECT < 0.1 MG/DL (<0.4); BILIRUBIN,TOTAL 0.2 MG/DL (0.3-1.2); TOTAL PROTEIN 7.5 G/DL (5.7-8.2)
[2023-06-26 12:39] LABS: C REACTIVE PROTEIN QUANTITATIV < 0.40 MG/DL (<1.0)
[2023-06-26] MEDS ORDERED: KETO10TAB PO (13:55)
== END 2023-06-26 14:10 | disposition home or self-care (01) ==
LOC: M ED 11:23
DX: N13.4 Hydroureter (principal); K57.30 Diverticulosis of large intestine without perforation or abscess without bleeding; E78.5 Hyperlipidemia, unspecified; F32.A Depression, unspecified; Z86.79 Personal history of other diseases of the circulatory system; Z79.1 Long term (current) use of non-steroidal anti-inflammatories (NSAID); Z79.52 Long term (current) use of systemic steroids; Z79.899 Other long term (current) drug therapy
CPT/HCPCS: 36415; 74177; 80047; 80076; 83690; 85025; 86140; 99283; Q9967

== ENCOUNTER 2023-07-02 12:12 | Outpatient (RCR) | payer OTHER | END 2023-07-20 | LOC: M ST 12:12 | PROVIDERS: ATTEND Family Medicine | DX: I63.9 Cerebral infarction, unspecified (principal) ==

== ENCOUNTER → 2023-07-28 | Outpatient (CLI) | payer OTHER | LOC: M RAD 12:07 | PROVIDERS: ATTEND Urology | DX: N13.39 Other hydronephrosis (principal) ==

== ENCOUNTER → 2023-09-02 | Outpatient (CLI) | payer OTHER ==
[2023-09-02 12:43] LABS: APPEARANCE, URINE CLOUDY (CLEAR); BACTERIA, URINE AUTO 1+ (NEGATIVE); BILIRUBIN, URINE AUTO NEGATIVE (NEGATIVE); BLOOD, URINE BLOOD 1+ (NEGATIVE); COLOR, URINE YELLOW (YELLOW); GLUCOSE, URINE (UA) AUTO NEGATIVE (NEGATIVE); KETONE, URINE AUTO NEGATIVE (NEGATIVE); LEUKOCYTE ESTERASE, URINE AUTO 3+ (NEGATIVE); NITRITE, URINE AUTO POSITIVE (NEGATIVE); PROTEIN, URINE AUTO 1+ mg/dL (NEGATIVE); RBC, URINE AUTO 12 /HPF (0-3); SPECIFIC GRAVITY URINE AUTO 1.009 (1.002-1.035); SQUAMOUS EPITHELIAL CELL UR AU 1 /HPF (0-6); UROBILINOGEN, URINE AUTO 0.2 mg/dL (0.0-2.0); WBC, URINE AUTO TNTC /HPF (0-3)
== END ==
LOC: M LAB 10:37
PROVIDERS: ATTEND Urology
DX: N13.39 Other hydronephrosis (principal); R33.9 Retention of urine, unspecified

== ENCOUNTER → 2023-11-25 | Outpatient (CLI) | payer OTHER ==
[2023-11-25 12:29] LABS: APPEARANCE, URINE HAZY (CLEAR); BACTERIA, URINE AUTO NEGATIVE (NEGATIVE); BILIRUBIN, URINE AUTO NEGATIVE (NEGATIVE); BLOOD, URINE BLOOD NEGATIVE (NEGATIVE); COLOR, URINE YELLOW (YELLOW); GLUCOSE, URINE (UA) AUTO NEGATIVE (NEGATIVE); KETONE, URINE AUTO TRACE mg/dL (NEGATIVE); LEUKOCYTE ESTERASE, URINE AUTO 3+ (NEGATIVE); NITRITE, URINE AUTO NEGATIVE (NEGATIVE); PROTEIN, URINE AUTO NEGATIVE (NEGATIVE); RBC, URINE AUTO 1 /HPF (0-3); SPECIFIC GRAVITY URINE AUTO 1.019 (1.002-1.035); SQUAMOUS EPITHELIAL CELL UR AU 1 /HPF (0-6); UROBILINOGEN, URINE AUTO 0.2 mg/dL (0.0-2.0); WBC, URINE AUTO 8 /HPF (0-3)
== END ==
LOC: M LAB 11:30
PROVIDERS: ATTEND Urology
DX: N13.39 Other hydronephrosis (principal); R33.9 Retention of urine, unspecified

== ENCOUNTER 2023-12-05 14:38 | Emergency (ER) | payer OTHER ==
[~2023-12-05] VITALS: Ht 165.1 cm; Wt 68.8 kg
[2023-12-05] MEDS: MORPHINE 2 MG/ML 1ML VIAL IV PRN (15:26)
[2023-12-05] MEDS ORDERED: ISOVUE-370 76% 100ML VIAL As Ordered ONE (15:40)
[2023-12-05 15:44] LABS: BASO # 0.1 10^3/uL (0.0-0.2); BASO % 0.8 % (0.0-1.0); EOS # 0.2 10^3/uL (0.0-0.5); EOS % 2.5 % (0.0-3.0); HEMATOCRIT 43.3 % (36.0-47.0); HEMOGLOBIN 14.4 g/dl (12.0-15.5); LYMPH # 3.3 10^3/uL (1.5-5.0); LYMPH % 36.4 % (24.0-44.0); MEAN CORPUSCULAR HEMOGLOBIN 29.8 pg (27.0-33.0); MEAN CORPUSCULAR HGB CONC 33.3 g/dl (32.0-36.5); MEAN CORPUSCULAR VOLUME 89.5 fl (80.0-96.0); MONO # 0.7 10^3/uL (0.0-0.8); MONO % 8.2 % (2.0-8.0); NEUTROPHILS # 4.7 10^3/uL (1.5-8.5); NEUTROPHILS % 51.7 % (36.0-66.0); PLATELET COUNT, AUTOMATED 413 10^3/uL (150-450); RED BLOOD COUNT 4.84 10^6/uL (4.00-5.40)
[2023-12-05 16:01] LABS: CK-MB VALUE MASS < 1.0 NG/ML (<3.6); LIPASE 28 U/L (12-53)
[2023-12-05 16:02] LABS: AMYLASE 50 U/L (30-118); ETHYL ALCOHOL (ETHANOL) 0.154 % (0.000-0.010)
[2023-12-05 16:03] LABS: ALBUMIN 4.4 G/DL (3.2-5.2); ALKALINE PHOSPHATASE 113 U/L (46-116); ALT/SGPT 18 U/L (7.0-40); AST/SGOT 21 U/L (<34); BILIRUBIN,DIRECT 0.1 MG/DL (<0.4); BILIRUBIN,TOTAL 0.4 MG/DL (0.3-1.2); BLOOD UREA NITROGEN 9 MG/DL (9-23); CALCIUM LEVEL 9.9 MG/DL (8.5-10.1); CARBON DIOXIDE LEVEL 24 MMOL/L (20-31); CHLORIDE LEVEL 105 MMOL/L (98-107); CPK CREATINE PHOSPHOKINASE 94 U/L (34-145); CREATININE FOR GFR 0.79 MG/DL (0.55-1.30); GLOMERULAR FILTRATION RATE > 60.0 (>58); GLUCOSE, FASTING 99 MG/DL (60-100); INR 0.99; MB/CK RELATIVE INDEX 1.06 (< OR =4); PARTIAL THROMBOPLASTIN TIME 26.9 SECONDS (24.8-34.2); POTASSIUM SERUM 3.7 MMOL/L (3.5-5.1); PROTHROMBIN TIME 12.8 SECONDS (12.5-14.5); SODIUM LEVEL 138 MMOL/L (136-145); TOTAL PROTEIN 7.9 G/DL (5.7-8.2)
[2023-12-05] MEDS: HYDROMORPHONE HCL 0.5 MG/ 0.5 ML SYRINGE IV PRN (16:33)
[2023-12-05 16:47] LABS: APPEARANCE, URINE CLEAR (CLEAR); BACTERIA, URINE AUTO NEGATIVE (NEGATIVE); BILIRUBIN, URINE AUTO NEGATIVE (NEGATIVE); BLOOD, URINE BLOOD 1+ (NEGATIVE); COLOR, URINE STRAW (YELLOW); GLUCOSE, URINE (UA) AUTO NEGATIVE (NEGATIVE); KETONE, URINE AUTO NEGATIVE (NEGATIVE); LEUKOCYTE ESTERASE, URINE AUTO NEGATIVE (NEGATIVE); MUCUS, URINE SMALL (NEGATIVE); NITRITE, URINE AUTO NEGATIVE (NEGATIVE); PROTEIN, URINE AUTO 1+ mg/dL (NEGATIVE); RBC, URINE AUTO 9 /HPF (0-3); SQUAMOUS EPITHELIAL CELL UR AU 3 /HPF (0-6); UROBILINOGEN, URINE AUTO 0.2 mg/dL (0.0-2.0); WBC, URINE AUTO 0 /HPF (0-3)
[2023-12-05 17:04] LABS: AMPHETAMINES LEVEL URINE NEGATIVE (NEGATIVE)
[2023-12-05 17:08] LABS: BARBITURATES URINE NEGATIVE (NEGATIVE); METHADONE URINE NEGATIVE (NEGATIVE); PHENCYCLIDINE URINE NEGATIVE (NEGATIVE)
[2023-12-05 17:09] LABS: BENZODIAZEPINES URINE NEGATIVE (NEGATIVE)
[2023-12-05 17:16] LABS: CANNABINOIDS URINE POSITIVE (NEGATIVE); COCAINE METABOLITE URINE POSITIVE (NEGATIVE); OPIATES URINE POSITIVE (NEGATIVE)
[2023-12-05] MEDS: KETOROLAC 30 MG/ML 1ML VIAL IV ONE (17:44)
[2023-12-05 18:23] VITALS: O2SAT 98
[2023-12-05] MEDS ORDERED: KETO10TAB PO (18:40)
[2023-12-05 18:46] VITALS: BP 158/98; TEMP 99.3
[2023-12-05] MEDS: OXYCODONE/APAP 5MG/325MG(HOME DOSE PACK) PO ONE (19:04)
[2023-12-05] MEDS: PERCOCET 5MG/325MG TAB PO ONE (19:04)
== END 2023-12-05 19:16 | disposition home or self-care (01) ==
LOC: EDBD 14:38 → M ED 14:38
DX: S02.2XXA Fracture of nasal bones, initial encounter for closed fracture (principal); S42.022A Displaced fracture of shaft of left clavicle, initial encounter for closed fracture; V17.0XXA Pedal cycle driver injured in collision with fixed or stationary object in nontraffic accident, initial encounter; K57.30 Diverticulosis of large intestine without perforation or abscess without bleeding; N26.1 Atrophy of kidney (terminal); E78.5 Hyperlipidemia, unspecified; F10.10 Alcohol abuse, uncomplicated; Z79.52 Long term (current) use of systemic steroids; Z79.899 Other long term (current) drug therapy; Z86.79 Personal history of other diseases of the circulatory system; Y92.480 Sidewalk as the place of occurrence of the external cause; Y93.89 Activity, other specified; Y99.9 Unspecified external cause status
CPT/HCPCS: 70450; 70486; 71045; 71260; 72125; 72128; 72131; 73000; 74177; 80047; 80048; 80076; 80307; 81001; 82077; 82150; 82550; 82553; 83605; 83690; 84484; 85025; 85610; 85730; 86850; 86900; 86901; 93041; 94760; 96374; 96375; 96376; 99285; J1170; J1885; Q9967

== ENCOUNTER → 2024-05-12 | Outpatient (CLI) | payer OTHER ==
[~2024-05-12] MED LIST changes: +CARI-555 PO; -CARI1TAB7 PO
[2024-05-12 12:19] LABS: HEMATOCRIT 42.2 % (36.0-47.0); HEMOGLOBIN 13.9 g/dl (12.0-15.5); MEAN CORPUSCULAR HEMOGLOBIN 29.6 pg (27.0-33.0); MEAN CORPUSCULAR HGB CONC 32.9 g/dl (32.0-36.5); MEAN CORPUSCULAR VOLUME 89.8 fl (80.0-96.0); PLATELET COUNT, AUTOMATED 392 10^3/uL (150-450); WHITE BLOOD COUNT 7.1 10^3/uL (4.0-10.0)
[2024-05-12 12:35] LABS: HEMOGLOBIN A1c 5.1 % (4.0-6.0)
[2024-05-12 12:46] LABS: ALBUMIN 4.1 G/DL (3.2-5.2); ALKALINE PHOSPHATASE 116 U/L (35-104); ALT/SGPT 12 U/L (7.0-40); AST/SGOT 13 U/L (<34); BILIRUBIN,TOTAL 0.5 MG/DL (0.3-1.2); BLOOD UREA NITROGEN 10 MG/DL (9-23); CALCIUM LEVEL 9.8 MG/DL (8.5-10.1); CARBON DIOXIDE LEVEL 28 MMOL/L (20-31); CHLORIDE LEVEL 105 MMOL/L (98-107); CHOLESTEROL LEVEL 223 MG/DL (<200); CHOLESTEROL RISK RATIO 2.68 (<5); CREATININE FOR GFR 0.69 MG/DL (0.55-1.30); GLOMERULAR FILTRATION RATE > 60.0 (>51); GLUCOSE, FASTING 100 MG/DL (60-100); LDL CHOLESTEROL 129.6 MG/DL (<100); POTASSIUM SERUM 4.7 MMOL/L (3.5-5.1); SODIUM LEVEL 141 MMOL/L (136-145); TOTAL PROTEIN 7.5 G/DL (5.7-8.2); TRIGLYCERIDES LEVEL 52 MG/DL (<150)
[2024-05-12 12:50] LABS: THYROID STIMULATING HORMONE 0.814 uIU/ML (0.55-4.78); TOTAL 25(OH) VITAMIN D 52.3 NG/ML (20.0-100.0)
== END ==
LOC: M RAD 10:26
PROVIDERS: ATTEND Family Medicine
DX: I10 Essential (primary) hypertension (principal); R53.83 Other fatigue; E03.9 Hypothyroidism, unspecified